=== PATIENT | female | born 1995 | race African-American/Black ===

== ENCOUNTER 2018-06-14 20:18 | Emergency (ER) | payer SELFPAY ==
[~2018-06-14] VITALS: Ht 165.1 cm; Wt 98.0 kg
[2018-06-14 20:49] VITALS: BP 120/79
[2018-06-14 21:17] LABS: BILIRUBIN,URINE NEGATIVE (NEG); CLARITY,URINE CLEAR; COLOR,URINE YELLOW; NITRITE,URINE NEGATIVE (NEG); PH,URINE 5.5; PROTEIN,URINE NEGATIVE (NEG-TRACE)
[2018-06-14 21:22] LABS: BACTERIA,URINE 0 /HPF (0-FEW); RBC,URINE 0 /HPF (0-2); SQUAMOUS EPITHELIAL CELL,UR FEW /LPF; WBC,URINE 0 /HPF (0-4)
[2018-06-14] MEDS ORDERED: AZITHROMYCIN 250 MG TABLET. PO ONE (21:30)
[2018-06-14] MEDS ORDERED: ONDANSETRON ODT 4 MG TAB.RAPDIS. PO ONE (21:30)
[2018-06-14] MEDS ORDERED: cefTRIAXone IM 250 MG VIAL IM ONE (21:30)
--- NOTE | 2018-06-14 22:03 | RAD ---
Transvaginal pelvic ultrasound HISTORY: Right adnexal pain Sonographic examination of the pelvis was performed by transvaginal vaginal technique and multiple static images were obtained. The endometrial the uterus measures 7 mm in thickness. The left ovary appears normal normal blood flow measures 2.0 x 2.7 x 2.3 cm. The right ovary appears normal with multiple follicles and with normal blood flow measures 2.1 x 3.0 x 2.2 cm. There is no free fluid. IMPRESSION: Negative examination. Electronically signed by: Bjorn Richardson III, MD (06/14/2018 9:59 PM) [facility]
[2018-06-14] MEDS ORDERED: METR500T PO (22:33)
--- NOTE | 2018-06-14 22:33 | PHYS DOC ---
Past Medical History Past Medical History: No Pertinent History Past Surgical History: , Other Additional Past Surgical Histo: L KNEE Alcohol Use: Occasionally Drug Use: None Adult General Chief Complaint Chief Complaint: ABDOMINAL PAIN HPI HPI Patient is a 23 year old [f__sex] who presents with [] Review of Systems Review of Systems Constitutional: Denies fever or chills [] Eyes: Denies change in visual acuity, redness, or eye pain [] HENT: Denies nasal congestion or sore throat [] Respiratory: Denies cough or shortness of breath [] Cardiovascular: No additional information not addressed in HPI [] GI: Denies abdominal pain, nausea, vomiting, bloody stools or diarrhea [] : Denies dysuria or hematuria [] Musculoskeletal: Denies back pain or joint pain [] Integument: Denies rash or skin lesions [] Neurologic: Denies headache, focal weakness or sensory changes [] Endocrine: Denies polyuria or polydipsia [] All other systems were reviewed and found to be within normal limits, except as documented in this note. Current Medications Current Medications Current Medications Medications (Trade) Dose Ordered Sig/Maxwell Start Time Stop Time Status Last Admin Dose Admin Azithromycin (Zithromax) 1,000 mg 1X ONCE 06/14/18 21:30 06/14/18 21:31 DC 06/14/18 22:12 1,000 MG Ceftriaxone Sodium (Rocephin Im) 250 mg 1X ONCE 06/14/18 21:30 06/14/18 21:31 DC 06/14/18 22:12 250 MG Ondansetron HCl (Zofran Odt) 4 mg 1X ONCE 06/14/18 21:30 06/14/18 21:31 DC 06/14/18 22:12 4 MG Allergies Allergies Allergies Coded Allergies Type Severity Reaction Last Updated Verified latex Allergy Mild Rash 06/14/18 Yes Physical Exam Physical Exam Constitutional: Well developed, well nourished, no acute distress, non-toxic appearance. [] HENT: Normocephalic, atraumatic, bilateral external ears normal, oropharynx moist, no oral exudates, nose normal. [] Eyes: PERRLA, EOMI, conjunctiva normal, no discharge. [] Neck: Normal range of motion, no tenderness, supple, no stridor. [] Cardiovascular:Heart rate regular rhythm, no murmur [] Lungs & Thorax: Bilateral breath sounds clear to auscultation [] Abdomen: Bowel sounds normal, soft, no tenderness, no masses, no pulsatile masses. [] Skin: Warm, dry, no erythema, no rash. [] Back: No tenderness, no CVA tenderness. [] Extremities: No tenderness, no cyanosis, no clubbing, ROM intact, no edema. [] Neurologic: Alert and oriented X 3, normal motor function, normal sensory function, no focal deficits noted. [] Psychologic: Affect normal, judgement normal, mood normal. [] Current Patient Data Vital Signs Vital Signs Date Time Temp Pulse Resp B/P (MAP) Pulse Ox O2 Delivery O2 Flow Rate FiO2 06/14/18 20:49 97.9 52 16 120/79 (93) 98 Room Air 97.9 Lab Values Laboratory Tests Test 06/14/18 20:26 06/14/18 20:27 Urine Collection Type Unknown Urine Color Yellow Urine Clarity Clear Urine pH 5.5 Urine Specific [place] >=1.030 Urine Protein Negative mg/dL (NEG-TRACE) Urine Glucose (UA) Negative mg/dL (NEG) Urine Ketones (Stick) Negative mg/dL (NEG) Urine Blood Negative (NEG) Urine Nitrite Negative (NEG) Urine Bilirubin Negative (NEG) Urine Urobilinogen Dipstick 1.0 mg/dL (0.2 mg/dL) Urine Leukocyte Esterase Negative (NEG) Urine RBC 0 /HPF (0-2) Urine WBC 0 /HPF (0-4) Urine Squamous Epithelial Cells Few /LPF Urine Bacteria 0 /HPF (0-FEW) Urine Mucus Slight /LPF POC Urine HCG, Qualitative Hcg negative (Negative) Microbiology 06/14/18 Wet Prep - Final, Complete EKG EKG [] Radiology/Procedures Radiology/Procedures [] Course & Med Decision Making Course & Med Decision Making Pertinent Labs and Imaging studies reviewed. (See chart for details) [] Dragon Disclaimer Dragon Disclaimer This electronic medical record was generated, in whole or in part, using a voice recognition dictation system. Departure Departure Impression: Primary Impression: Pelvic pain Additional Impression: Vaginal discharge Disposition: 01 HOME, SELF-CARE Condition: STABLE Referrals: NO PCP (PCP) JUANCARLOS CARDENAS Jr, MD Patient Instructions: Bacterial Vaginosis, [id number], Pelvic Pain, Female, [id number] Scripts Metronidazole (FLAGYL) 500 Mg Tablet 500 MG PO TID, #21 TAB Prov: LUANNE DEXTER DO 06/14/18 Problem Qualifiers LUANNE DEXTER DO Jun 14, 2018 22:33
[2018-06-16 13:22] LABS: GC PROBE Negative (Negative)
== END 2018-06-14 22:49 | disposition home or self-care (01) ==
LOC: ER 20:18
DX: R10.2 Pelvic and perineal pain (principal); N89.8 Other specified noninflammatory disorders of vagina; Z98.890 Other specified postprocedural states; Z91.040 Latex allergy status
CPT/HCPCS: 76830; 81001; 81025; 87491; 87591; 96372; 99284; J0696; Q0111; Q0144; Q0162

== ENCOUNTER 2018-07-21 01:25 | Emergency (ER) | payer SELFPAY ==
[~2018-07-21] VITALS: Ht 165.1 cm; Wt 95.3 kg
[~2018-07-21 01:25] MED LIST: METR500T PO
[2018-07-21 01:41] VITALS: BP 149/66
[2018-07-21] MEDS ORDERED: HYDR-3164 PO (02:37)
[2018-07-21] MEDS ORDERED: HYDR30CR61 TP (02:37)
[2018-07-21] MEDS ORDERED: PSYL0.5215 PO (02:37)
--- NOTE | 2018-07-21 02:51 | PHYS DOC ---
Past Medical History Past Medical History: No Pertinent History Past Surgical History: , Other Additional Past Surgical Histo: L KNEE Alcohol Use: Occasionally Drug Use: None Adult General Chief Complaint Chief Complaint: HEMORRHOIDS HPI HPI Patient is a 23 year old female presenting with hemorrhoid. She is having rectal pain when she tries to the bowel movement she feels something popped out when she pushes down some blood on the toilet paper has had this before symptoms are moderate they became severe 2 hours ago. Localized to this area no abdominal pain Review of Systems Review of Systems Constitutional: Denies fever or chills [] Eyes: Denies change in visual acuity, redness, or eye pain [] HENT: Denies nasal congestion or sore throat [] Respiratory: Denies cough or shortness of breath [] Musculoskeletal: Denies back pain or joint pain [] Integument: Denies rash or skin lesions [] All other systems were reviewed and found to be within normal limits, except as documented in this note. Current Medications Current Medications Current Medications Medications (Trade) Dose Ordered Sig/Maxwell Start Time Stop Time Status Last Admin Dose Admin Acetaminophen/ Hydrocodone Bitart (Lortab 5/325) 2 tab 1X ONCE 07/21/18 03:00 07/21/18 03:01 Ketorolac Tromethamine (Toradol 30mg Vial) 30 mg 1X ONCE 07/21/18 03:00 07/21/18 03:01 Allergies Allergies Allergies Coded Allergies Type Severity Reaction Last Updated Verified latex Allergy Mild Rash 06/14/18 Yes Physical Exam Physical Exam Constitutional: Well developed, well nourished, no acute distress, non-toxic appearance. [] HENT: Normocephalic, atraumatic, bilateral external ears normal, oropharynx moist, no oral exudates, nose normal. [] Eyes: PERRLA, EOMI, conjunctiva normal, no discharge. [] Neck: Normal range of motion, no tenderness, supple, no stridor. [] Abdomen: soft, no tenderness, no masses, no pulsatile masses. [] rectal small hemorrhoid seen. digital exam deferred due to pt cooperation and pain Extremities: No tenderness, no cyanosis, no clubbing, ROM intact, no edema. [] Neurologic: Alert and oriented X 3, normal motor function, normal sensory function, no focal deficits noted. [] EKG EKG [] Radiology/Procedures Radiology/Procedures [] Course & Med Decision Making Course & Med Decision Making Pertinent Labs and Imaging studies reviewed. (See chart for details) []suspect hemorrhoid hx is nearly diagnostic small hemorrhoid seen externally. pt did not seem likely to tolerate digital exam Conservative therapy was recommended as noted below. Patient was given pain control emergency room. Dragon Disclaimer Dragon Disclaimer This electronic medical record was generated, in whole or in part, using a voice recognition dictation system. Departure Departure Impression: Primary Impression: Hemorrhoid Disposition: HOME, SELF-CARE Condition: STABLE Patient Instructions: Hemorrhoids Scripts Psyllium Husk (METAMUCIL) 0.52 Gm Capsule 0.52 GM PO DAILY, #30 CAP Prov: VERO ALCOCER MD 07/21/18 Hydrocodone/Apap 5-325 (NORCO 5-325 TABLET) 1 Each Tablet 1-2 EACH PO PRN Q6HRS PRN for p, #8 as needed for pain Prov: VERO ALCOCER MD 07/21/18 Hydrocortisone (ANUSOL-HC) 30 Gm Cream..g. 1 PAMELA TP BID, #30 GM 1 Refill Prov: VERO ALCOCER MD 07/21/18 VERO ALCOCER MD Jul 21, 2018 02:51
[2018-07-21] MEDS ORDERED: KETOROLAC 30 MG/ML VIAL. IM ONE (03:00)
[2018-07-21] MEDS ORDERED: HYDROcodone/APAP 5/325MG 1 TAB TABLET PO ONE (03:00)
== END 2018-07-21 02:56 | disposition home or self-care (01) ==
LOC: ER 01:25
DX: K64.4 Residual hemorrhoidal skin tags (principal); Z91.040 Latex allergy status
CPT/HCPCS: 96372; 99283; J1885; 99282

== ENCOUNTER 2019-03-28 14:00 | Emergency (ER) | payer SELFPAY ==
[~2019-03-28] VITALS: Ht 165.1 cm; Wt 95.3 kg
[~2019-03-28 14:00] MED LIST changes: +HYDR-3164 PO; +HYDR30CR61 TP; +PSYL0.5215 PO
[2019-03-28 14:35] VITALS: BP 127/96
[2019-03-28] MEDS ORDERED: AZITHROMYCIN 250 MG TABLET. PO ONE (14:45)
[2019-03-28] MEDS ORDERED: ONDANSETRON ODT 4 MG TAB.RAPDIS. PO ONE (14:45)
[2019-03-28] MEDS ORDERED: cefTRIAXone IM 250 MG VIAL IM ONE (14:45)
[2019-03-28 14:57] LABS: BILIRUBIN,URINE NEGATIVE (NEG); CLARITY,URINE CLEAR; COLOR,URINE YELLOW; NITRITE,URINE NEGATIVE (NEG); PH,URINE 6.5; PROTEIN,URINE NEGATIVE (NEG-TRACE); UROBILINOGEN,URINE 0.2 mg/dL (0.2 mg/dL)
[2019-03-28 15:06] LABS: SQUAMOUS EPITHELIAL CELL,UR MANY /LPF
[2019-03-28 15:07] LABS: BASO % 0 % (0-3); EOS # 0.1 x10^3/uL (0.0-0.7); EOS % 3 % (0-3); HEMATOCRIT 37.8 % (36.0-47.0); HEMOGLOBIN 12.7 g/dL (12.0-15.5); LYMPH # 1.4 x10^3/uL (1.0-4.8); LYMPH % 39 % (24-48); MEAN CORPUSCULAR HEMOGLOBIN 30 pg (25-35); MEAN CORPUSCULAR HGB CONC 34 g/dL (31-37); MEAN CORPUSCULAR VOLUME 89 fL (79-100); MONO # 0.5 x10^3/uL (0.0-1.1); MONO % 13 % (0-9); NEUT # 1.6 x10^3/uL (1.8-7.7); NEUT % 45 % (31-73); PLATELET COUNT 309 x10^3/uL (140-400); RED BLOOD COUNT 4.23 x10^6/uL (3.50-5.40); RED CELL DISTRIBUTION WIDTH 13.9 % (11.5-14.5); WHITE BLOOD COUNT 3.6 x10^3/uL (4.0-11.0)
[2019-03-28 15:08] LABS: BACTERIA,URINE MANY /HPF (0-FEW); RBC,URINE 0 /HPF (0-2); WBC,URINE OCC /HPF (0-4)
[2019-03-28 15:25] LABS: CALCIUM 9.3 mg/dL (8.5-10.1); CREATININE 0.9 mg/dL (0.6-1.0); GFR 92.3; POTASSIUM 4.1 mmol/L (3.5-5.1)
[2019-03-28 15:29] LABS: ALBUMIN 3.6 g/dL (3.4-5.0); ALBUMIN/GLOBULIN RATIO 0.9 (1.0-1.7); TOTAL BILIRUBIN 0.3 mg/dL (0.2-1.0); TOTAL PROTEIN 7.6 g/dL (6.4-8.2)
--- NOTE | 2019-03-28 15:43 | PHYS DOC ---
Past Medical History Past Medical History: No Pertinent History Past Surgical History: , Other Additional Past Surgical Histo: L KNEE Alcohol Use: Occasionally Drug Use: None Adult General Chief Complaint Chief Complaint: ABDOMINAL PAIN IN HPI HPI Patient is a 23 year old female who presents with a positive test one week ago. Patients last missed her period was February 10, 2019. Patient states she's had nausea and some vomiting mainly in the mornings. Patient she states she's having low mid abdominal cramping since March 02. Patient states she's also having vaginal discharge is cloudy and watery but that is not odorous. Patient states she does not have an OB doctor at this time. Patient rates her cramping pain a 3 out of 10. Review of Systems Review of Systems Constitutional: Denies fever or chills [] GI: Low mid abdominal pain, nausea, vomiting, denies bloody stools or diarrhea [] : No discharge. Denies dysuria or hematuria [] All other systems were reviewed and found to be within normal limits, except as documented in this note. Current Medications Current Medications Current Medications Medications (Trade) Dose Ordered Sig/Maxwell Start Time Stop Time Status Last Admin Dose Admin Azithromycin (Zithromax) 1,000 mg 1X ONCE 03/28/19 14:45 03/28/19 15:00 DC 03/28/19 15:13 1,000 MG Ceftriaxone Sodium (Rocephin Im) 250 mg 1X ONCE 03/28/19 14:45 03/28/19 15:00 DC 03/28/19 15:13 250 MG Ondansetron HCl (Zofran Odt) 4 mg 1X ONCE 03/28/19 14:45 03/28/19 15:00 DC 03/28/19 15:13 4 MG Allergies Allergies Allergies Coded Allergies Type Severity Reaction Last Updated Verified latex Allergy Mild Rash 06/14/18 Yes Physical Exam Physical Exam Constitutional: Well developed, well nourished, no acute distress, non-toxic appearance. [] Cardiovascular:Heart rate regular rhythm, no murmur [] Lungs & Thorax: Bilateral breath sounds clear to auscultation [] Abdomen: Bowel sounds normal, soft, no tenderness, no masses, no pulsatile masses. [] Skin: Warm, dry, no erythema, no rash. [] Back: No tenderness, no CVA tenderness. [] Neurologic: Alert and oriented X 3, normal motor function, normal sensory function, no focal deficits noted. [] Psychologic: Affect normal, judgement normal, mood normal. Normal physical exam[] Current Patient Data Vital Signs Vital Signs Date Time Temp Pulse Resp B/P (MAP) Pulse Ox O2 Delivery O2 Flow Rate FiO2 03/28/19 14:35 98.1 55 16 127/96 (106) 97 Room Air 98.1 Lab Values Laboratory Tests Test 03/28/19 14:20 03/28/19 14:26 03/28/19 14:56 Urine Collection Type Unknown Urine Color Yellow Urine Clarity Clear Urine pH 6.5 Urine Specific [place] 1.025 Urine Protein Negative mg/dL (NEG-TRACE) Urine Glucose (UA) Negative mg/dL (NEG) Urine Ketones (Stick) Negative mg/dL (NEG) Urine Blood Negative (NEG) Urine Nitrite Negative (NEG) Urine Bilirubin Negative (NEG) Urine Urobilinogen Dipstick 0.2 mg/dL (0.2 mg/dL) Urine Leukocyte Esterase Trace (NEG) Urine RBC 0 /HPF (0-2) Urine WBC Occ /HPF (0-4) Urine Squamous Epithelial Cells Many /LPF Urine Bacteria Many /HPF (0-FEW) Urine Mucus Marked /LPF POC Urine HCG, Qualitative Hcg positive (Negative) White Blood Count 3.6 x10^3/uL (4.0-11.0) L Red Blood Count 4.23 x10^6/uL (3.50-5.40) Hemoglobin 12.7 g/dL (12.0-15.5) Hematocrit 37.8 % (36.0-47.0) Mean Corpuscular Volume 89 fL (79-100) Mean Corpuscular Hemoglobin 30 pg (25-35) Mean Corpuscular Hemoglobin Concent 34 g/dL (31-37) Red Cell Distribution Width 13.9 % (11.5-14.5) Platelet Count 309 x10^3/uL (140-400) Neutrophils (%) (Auto) 45 % (31-73) Lymphocytes (%) (Auto) 39 % (24-48) Monocytes (%) (Auto) 13 % (0-9) H Eosinophils (%) (Auto) 3 % (0-3) Basophils (%) (Auto) 0 % (0-3) Neutrophils # (Auto) 1.6 x10^3/uL (1.8-7.7) L Lymphocytes # (Auto) 1.4 x10^3/uL (1.0-4.8) Monocytes # (Auto) 0.5 x10^3/uL (0.0-1.1) Eosinophils # (Auto) 0.1 x10^3/uL (0.0-0.7) Basophils # (Auto) 0.0 x10^3/uL (0.0-0.2) Maternal Serum HCG Beta Subunit 68202 mIU/mL (0-5) H Sodium Level 140 mmol/L (136-145) Potassium Level 4.1 mmol/L (3.5-5.1) Chloride Level 102 mmol/L (98-107) Carbon Dioxide Level 27 mmol/L (21-32) Anion Gap 11 (6-14) Blood Urea Nitrogen 10 mg/dL (7-20) Creatinine 0.9 mg/dL (0.6-1.0) Estimated GFR (Cockcroft-Gault) 92.3 BUN/Creatinine Ratio 11 (6-20) Glucose Level 88 mg/dL (70-99) Calcium Level 9.3 mg/dL (8.5-10.1) Total Bilirubin 0.3 mg/dL (0.2-1.0) Aspartate Amino Transferase (AST) 13 U/L (15-37) L Alanine Aminotransferase (ALT) 16 U/L (14-59) Alkaline Phosphatase 69 U/L (46-116) Total Protein 7.6 g/dL (6.4-8.2) Albumin 3.6 g/dL (3.4-5.0) Albumin/Globulin Ratio 0.9 (1.0-1.7) L Laboratory Tests 03/28/19 14:56 Laboratory Tests 03/28/19 14:56 Microbiology 03/28/19 Wet Prep - Final, Complete EKG EKG [] Radiology/Procedures Radiology/Procedures [] Impressions: [facility] [address] [place] [address] IMAGING REPORT Signed PATIENT: WALDO WESLEY RACCOUNT: [id number] : 1995 LOCATION: ER AGE: 23 SEX: F EXAM STATUS: REG ER ORD. PHYSICIAN: PETERSON SINGH APRN REASON: , pain PROCEDURE: OB <14 WKS W/TV Examination: OB <14 WKS W/TV History: Pain, Comparison/Correlation: 06/14/2018 transvaginal pelvic ultrasound exam Findings: OB ultrasound exam was performed. Uterus measures 8 cm x 7 cm x 5 cm. Intrauterine gestation is identified with heart rate of 132 bpm. [place]-rump length of 1.2 cm correspond to 7 weeks 2 day gestation. Yolk sac is identified. Sonographic EDC of 11/12/2019 is noted. No subchronic hemorrhage. Right ovary measures 2.8 cm x 2 cm x 1.9 cm and is normal in appearance. Left ovary measures 3 cm x 2.3 cm x 1.9 cm with a hemorrhagic left adnexal follicle measuring up to 1.8 cm diameter present. Normal ovarian flow bilaterally seen. No pelvic free fluid. Impression: Single living intrauterine gestation corresponds 7 weeks 2 days by crown-rump length. Left adnexal cystic structure which probably is physiologic. Electronically signed by: Michael Baugh MD (03/28/2019 4:16 PM) [facility] DICTATED and SIGNED BY: MICHAEL BAUGH MD DATE: 03/28/19 161 Course & Med Decision Making Course & Med Decision Making Patient is a 23 year old female who presents with a positive test one week ago. Patients last missed her period was February 10, 2019. Patient states she's had nausea and some vomiting mainly in the mornings. Patient she states she's having low mid abdominal cramping since March 02. Patient states she's also having vaginal discharge is cloudy and watery but that is not odorous. Patient states she does not have an OB doctor at this time. Patient rates her cramping pain a 3 out of 10. Alert and oriented. Skin pink warm and dry. Vital signs within normal limits. Patient denies dysuria, headache, dizziness, chest pain, shortness of air, numbness or tingling. No extremity edema. Speaks in full clear sentences. Ambulatory with a steady gait. Lungs are clear to auscultation all lobes. Patient has no abdominal tenderness with palpation. Abdomen is soft. PERRLA. Afebrile. Patient is tested and treated for chlamydia and gonorrhea. US shows Single living intrauterine gestation corresponds 7 weeks 2 days by crown-rump length. Left adnexal cystic structure which probably is physiologic. Heart rate 132. Pelvic Exam: Folder Gluer Operator present Abdomen: Nontender External Genitalia: Normal Skin Speculum: Normal vaginal mucosa, White cervical discharge Bimanual: No adnexal masses or tenderness, No CMT Dragon Disclaimer Dragon Disclaimer This electronic medical record was generated, in whole or in part, using a voice recognition dictation system. Departure Departure Impression: Primary Impression: Abdominal pain affecting Additional Impression: Bacterial vaginosis Disposition: HOME, SELF-CARE Condition: STABLE Referrals: NO PCP (PCP) JUANCARLOS CARDENAS Jr, MD Patient Instructions: ABCs of , Abdominal Pain During Additional Instructions: Follow-up with OB doctor soon as possible. Begin taking vitamins. Plenty of fluids. Take medication as prescribed. Since you have left before your ultrasound results there is a risk of serious complications such as an ectopic back in rupture and cause . Scripts Ondansetron (ONDANSETRON ODT) 4 Mg Tab.rapdis 1 TAB PO PRN Q6-8HRS, #16 TAB Prov: PETERSON SINGH BINDING CUTTER 03/28/19 Metronidazole (FLAGYL) 500 Mg Tablet 1 TAB PO BID, #14 TAB Prov: PETERSON SINGH APRN 03/28/19 Problem Qualifiers PETERSON SINGH APRN Mar 28, 2019 15:43
[2019-03-28] MEDS ORDERED: METR500T PO (16:18)
[2019-03-28] MEDS ORDERED: ONDA4TAB12 PO (16:18)
--- NOTE | 2019-03-28 16:19 | RAD ---
Examination: OB <14 WKS W/TV History: Pain, Comparison/Correlation: 06/14/2018 transvaginal pelvic ultrasound exam Findings: OB ultrasound exam was performed. Uterus measures 8 cm x 7 cm x 5 cm. Intrauterine gestation is identified with heart rate of 132 bpm. [place]-rump length of 1.2 cm correspond to 7 weeks 2 day gestation. Yolk sac is identified. Sonographic EDC of 11/12/2019 is noted. No subchronic hemorrhage. Right ovary measures 2.8 cm x 2 cm x 1.9 cm and is normal in appearance. Left ovary measures 3 cm x 2.3 cm x 1.9 cm with a hemorrhagic left adnexal follicle measuring up to 1.8 cm diameter present. Normal ovarian flow bilaterally seen. No pelvic free fluid. Impression: Single living intrauterine gestation corresponds 7 weeks 2 days by crown-rump length. Left adnexal cystic structure which probably is physiologic. Electronically signed by: Michael Sampson MD (03/28/2019 4:16 PM) [facility]
[2019-03-29 17:09] LABS: GC PROBE Negative (Negative)
== END 2019-03-28 16:24 | disposition home or self-care (01) ==
LOC: ER 14:00
DX: N76.0 Acute vaginitis (principal); B96.89 Other specified bacterial agents as the cause of diseases classified elsewhere; R10.30 Lower abdominal pain, unspecified; R11.2 Nausea with vomiting, unspecified; Z91.040 Latex allergy status
CPT/HCPCS: 36415; 76801; 76817; 80053; 81001; 81025; 84702; 85025; 86850; 86900; 86901; 87086; 87491; 87591; 96372; 99285; J0696; Q0111; Q0144; Q0162